=== PATIENT | male | born 1940 | race Caucasian/White ===

== ENCOUNTER → 2019-01-25 11:04 | Outpatient (CLI) | payer MEDICARE, SELFPAY ==
--- NOTE | 2019-01-25 | DI.RAD.S_ITS ---
PROCEDURE: XR CHEST 2V INDICATIONS: Shortness of breath TECHNIQUE: 2 views of the chest were acquired. COMPARISON: None. FINDINGS: Surgical changes and devices: None. Lungs and pleura: No consolidation. Increased interstitial markings. Lung volumes are prominent. No pleural effusions or pneumothorax. Mediastinum: Fullness in the right hilar region. Heart size is enlarged. Bones and chest wall: No suspicious bony abnormalities. Soft tissues appear unremarkable. IMPRESSION: 1. Fullness in the right hilar region may be due to adenopathy. CT of the chest with contrast is recommended for further evaluation. 2. Emphysematous change. 3. Cardiomegaly. Coronary stents. Dictated by: Thomas Lopez M.D. on 01/25/2019 at 12:13 Approved by: Thomas Lopez M.D. on 01/25/2019 at 12:16
== END ==
PROVIDERS: PCP Internal Medicine; Visit Provider Student in an Organized Health Care Education/Training Program
DX: R06.02 Shortness of breath (principal); I51.7 Cardiomegaly; I25.10 Atherosclerotic heart disease of native coronary artery without angina pectoris
CPT/HCPCS: 71046

== ENCOUNTER → 2019-01-30 09:32 | Outpatient (CLI) | payer MEDICARE, SELFPAY ==
[2019-01-30 10:00] LABS: Add Manual Diff / Slide Review NO; Basophils Absolute Auto 100 /uL (0-100); Basophils Percent Auto 1.1 % (0-2); Eosinophils Absolute Auto 300 /uL (0-450); Eosinophils Percent Auto 4.1 % (2-4); Hematocrit 46.3 % (41-53); Hemoglobin 15.6 g/dL (13.5-17.5); Lymphocytes Absolute Auto 1300 /uL (1100-4500); Lymphocytes Percent Auto 19.3 % (25-40); Mean Corpuscular HGB Conc 33.8 % (30-36); Mean Corpuscular Volume 100.5 fL (80-100); Monocytes Absolute Auto 700 /uL (0-900); Monocytes Percent Auto 10.1 % (3-14); Neutrophils Absolute Auto 4300 /uL (1500-7000); Neutrophils Percent Auto 65.4 % (50-75); Platelet Count 160 X10^3/uL (150-400); Red Blood Cell Count 4.61 X10^6/uL (4.5-5.9); Red Cell Distribution Width 15.7 % (11.6-14.8); White Blood Cell Count 6.6 X10^3/uL (4.5-11.0)
[2019-01-30 10:12] LABS: Alanine Aminotransferase 22 IU/L (21-72); Albumin 4.1 g/dL (3.5-5.0); Albumin Globulin Ratio 1.6 (1.0-2.8); Alkaline Phosphatase 113 U/L (38-126); Aspartate Aminotransferase 31 IU/L (17-59); BUN Creatinine Ratio 28.9 (6-22); Bilirubin Total 3.7 mg/dL (0.2-1.3); Blood Urea Nitrogen 26 mg/dL (9-20); Calcium 9.2 mg/dL (8.4-10.2); Carbon Dioxide 27 mmol/L (22-32); Chloride 101 mmol/L (98-107); Estimated Glomerular Filt Rate > 60.0 mL/min (>60); Globulin 2.6 g/dL (1.7-4.1); Glucose 147 mg/dL (80-110); HEMOLYSIS 16 (0-50); Potassium 5.1 mmol/L (3.4-5.1); Sodium 138 mmol/L (137-145); Total Protein 6.7 g/dL (6.3-8.2)
[2019-01-30 10:15] LABS: B Type Natriuretic Peptide 1620 (<100)
--- NOTE | 2019-01-30 10:19 | DI.CT.S_ITS ---
PROCEDURE: CT CHEST W CON INDICATIONS: Abnormal findings on diagnostic imaging TECHNIQUE: After the administration of intravenous contrast, 5 mm thick sections acquired from the pulmonary apices to the posterior costophrenic angles. 1 mm axial lung, 5 mm thick coronal and sagittal reformats and 7 mm axial MIP were acquired. For radiation dose reduction, the following was used: automated exposure control, adjustment of mA and/or kV according to patient size. COMPARISON: [facility], CR, XR CHEST 2V, 01/25/2019, 11:11. FINDINGS: Image quality: Excellent. Lungs and pleura: No acute air space opacities. No pleural effusions or pneumothorax. Central and peripheral airways are patent and normal in caliber. Mediastinum: Heart size is globally enlarged to a mild degree. No pericardial effusion. No mediastinal or hilar adenopathy by size criteria. Thoracic aorta and central pulmonary arteries are normal in size. Esophagus is normal in caliber. No hiatal hernia. Bones and chest wall: No suspicious bony lesions. No vertebral body compression fractures. No axillary or supraclavicular adenopathy by size criteria. Thyroid gland appears normal where well seen. Abdomen: Visualized upper abdominal solid organs appear normal. Upper abdominal bowel loops are normal in caliber. IMPRESSION: Mild cardiomegaly, no pulmonary mass lesion or adenopathy is found. 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 No aneurysm is found. Dictated by: Arsalan Lai M.D. on 01/30/2019 at 13:12 Approved by: Arsalan Lai M.D. on 01/30/2019 at 13:14
== END ==
PROVIDERS: Family Provider Internal Medicine; PCP Internal Medicine; Visit Provider Student in an Organized Health Care Education/Training Program
DX: R93.89 Abnormal findings on diagnostic imaging of other specified body structures (principal); I51.7 Cardiomegaly; R91.8 Other nonspecific abnormal finding of lung field; I50.9 Heart failure, unspecified
CPT/HCPCS: 36415; 71260; 80053; 83880; 85025; Q9967

== ENCOUNTER → 2019-02-08 10:23 | Outpatient (CLI) | payer MEDICARE, SELFPAY ==
[2019-02-08 11:28] LABS: Alanine Aminotransferase 23 IU/L (21-72); Albumin 4.1 g/dL (3.5-5.0); Albumin Globulin Ratio 1.5 (1.0-2.8); Alkaline Phosphatase 102 U/L (38-126); Aspartate Aminotransferase 36 IU/L (17-59); Bilirubin Total 3.7 mg/dL (0.2-1.3); Blood Urea Nitrogen 29 mg/dL (9-20); Calcium 9.3 mg/dL (8.4-10.2); Carbon Dioxide 31 mmol/L (22-32); Chloride 95 mmol/L (98-107); Cholesterol 115 mg/dL (140-199); Estimated Glomerular Filt Rate > 60.0 mL/min (>60); Globulin 2.8 g/dL (1.7-4.1); Glucose 118 mg/dL (80-110); HDL Cholesterol 27 mg/dL (40-60); HEMOLYSIS 22 (0-50); LDL Cholesterol Calculated 76 mg/dL (<100); Sodium 136 mmol/L (137-145); Total Protein 6.9 g/dL (6.3-8.2); Triglycerides 58 mg/dL (35-150)
== END ==
PROVIDERS: PCP Internal Medicine; Visit Provider Internal Medicine Cardiovascular Disease
DX: I50.22 Chronic systolic (congestive) heart failure (principal); I25.5 Ischemic cardiomyopathy; I48.20 Chronic atrial fibrillation, unspecified; E78.5 Hyperlipidemia, unspecified
CPT/HCPCS: 36415; 80053; 80061

== ENCOUNTER 2019-04-26 11:30 | Outpatient (RCR) | payer MEDICARE, SELFPAY | END 2019-05-07 10:49 | LOC: CAR 11:30 | PROVIDERS: PCP Internal Medicine; Visit Provider Internal Medicine | DX: I50.22 Chronic systolic (congestive) heart failure (principal) | CPT/HCPCS: 93798 ==

== ENCOUNTER → 2019-05-22 13:08 | Outpatient (CLI) | payer MEDICARE, SELFPAY ==
--- NOTE | 2019-05-22 | DI.RAD.S_ITS ---
PROCEDURE: XR LUMBAR SPINE 2-3V INDICATIONS: Back pain TECHNIQUE: Single view of the lumbar spine were acquired. COMPARISON: None. FINDINGS: Bones: 5 [id number] vertebrae are present. There is normal bony alignment. No vertebral body compression fractures. No suspicious bony lesions. 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 There is bridging osteophytes between L23 and L3-4, and these are greater on the left than the right. Superior and inferior endplate impaction is are present at L12, superior aspect of L3, and at both the superior and inferior endplates of L5. These appear likely chronic. Soft tissues: Overlying bowel gas pattern is normal. There is a prominent calcification in the region of the lower third of the right kidney measuring up to 1.5 cm.. IMPRESSION: Near severe degenerative changes are found over the LS spine most pronounced over the upper and middle thirds with both prominent bridging osteophytes, disc height reduction, and endplate impaction injuries that appear likely chronic. Note is made of a calcification overlying the right lower abdomen, possibly within the lower third collecting system of the right kidney, measuring up to 15 mm. Followup renal ultrasound may be warranted. Dictated by: Arsalan Lai M.D. on 05/22/2019 at 14:12 Approved by: Arsalan Lai M.D. on 05/22/2019 at 14:15
--- NOTE | 2019-05-22 | DI.RAD.S_ITS ---
PROCEDURE: XR CHEST 2V INDICATIONS: Heart failure TECHNIQUE: 2 views of the chest were acquired. COMPARISON: [facility], CR, XR CHEST 2V, 01/25/2019, 11:11. FINDINGS: Surgical changes and devices: None. Lungs and pleura: Lungs are mildly abnormal with an interstitial prominence consistent with perhaps prior smoking history. No pleural effusions or pneumothorax. Mediastinum: Mediastinal contours are normal. Heart size is globally enlarged, moderately, consistent with chronic CHF. Bones and chest wall: No suspicious bony abnormalities. Soft tissues appear unremarkable. IMPRESSION: Chronic CHF pattern, no acute disease. Dictated by: Arsalan aLi M.D. on 05/22/2019 at 14:11 Approved by: Arsalan Lai M.D. on 05/22/2019 at 14:12
== END ==
PROVIDERS: PCP Internal Medicine; Referring Provider Internal Medicine; Visit Provider Internal Medicine
DX: I50.9 Heart failure, unspecified (principal); M54.5 Low back pain; M47.816 Spondylosis without myelopathy or radiculopathy, lumbar region
CPT/HCPCS: 71046; 72100

== ENCOUNTER 2019-05-23 18:53 | Inpatient (IN) | payer MEDICARE, SELFPAY ==
[2019-05-23] VITALS (14 sets, daily range): BP systolic 68–81; BP diastolic 50–54; PULSE 68–72; RESP 12–23; TEMP 36.6; O2SAT 92–100
--- NOTE | 2019-05-23 19:02 | ED.GENADULT ---
HPI - General Adult General Chief complaint: Trauma Stated complaint: mental status change Time Seen by Provider: 05/23/19 18:53 Source: family and EMS Mode of arrival: EMS Limitations: altered mental status History of Present Illness HPI narrative: 78-year-old male who arrived by EMS for concerns of altered mental status. Report was that earlier today he EMS was called to the patient's house for altered mental status. Upon arrival they found him to be hypoglycemic with a blood sugar in the 40s. He was able to eat food which did improve his sugar. Patient then declined to be transported to the emergency department. His was reported to be with him at that time will also agreed that he should not be transported. EMS contacted the emergency department to let them know about the situation. Later on the afternoon EMS was again called to the house for altered mental status. He was then transported. Difficult to obtain history from the patient about the situation. His is at bedside provided little medical history. Patient stated that last night and this morning he ?just did not feel well?. Denies any other specific symptoms. It was then reported that the patient did fall earlier today. Unsure if he hit his head. He is on Eliquis. Modified trauma was called secondary to the situation. Patient reports no injuries with the fall. He states that he was out this morning running some errands and when he returned home he had a very difficult time walking. After multiple conversations with him in the room is also revealed that he has not urinated in potentially 72 hours. He also states that because he was not urinating he quit drinking fluids. He is unsure when the last time he had anything to drink. His then did say that she was giving him glasses of water to drink but he was not drinking then. He has never had any prostate issues in the past. This event he denies any headache or chest pain or shortness of breath. Some lower abdominal pain. Does have swelling in his lower extremities. Has a history of CHF. Is on Bumex for this. Related Data Home Medications Medication Instructions Recorded Confirmed bumetanide 1 mg PO BID 05/23/19 05/23/19 tramadol 50 - 100 mg PO Q6H PRN 05/23/19 05/23/19 Allergies Allergy/AdvReac Type Severity Reaction Status Date / Time No Known Drug Allergies Allergy Verified 05/23/19 21:15 Review of Systems Constitutional Constitutional: Reports fatigue, Denies fever(s), Denies frequent falls, Denies headache(s), Reports lethargy and Reports weakness ENT Ears, Nose, Mouth, and Throat: Denies dizziness, Denies headache(s) and Reports disequilibrium Cardiovascular Cardiovascular: Denies chest pain, Denies syncope, Reports edema, Reports leg edema, Denies palpitations and Denies dyspnea Respiratory Respiratory: Denies cough and Denies dyspnea Gastrointestinal Gastrointestinal: Reports abdominal pain, Denies nausea and Denies vomiting Genitourinary Genitourinary: Reports difficulty urinating and Denies testicular mass Musculoskeletal Musculoskeletal: Reports myalgias, Denies arthralgias and Denies tingling Integumentary/Breasts Skin/Breast: Denies lesions and Denies rash Neurologic Neurologic: Reports behavioral changes, Reports confusion, Denies dizziness, Denies syncope, Denies frequent falls, Denies headache(s), Denies focal weakness, Denies tingling, Reports disequilibrium and Reports weakness Psychiatric Psychiatric: Denies anxiety, Reports behavioral changes and Reports confusion Endocrine Endocrine: Reports fatigue and Denies palpitations Hematologic/Lymphatic Comments: On Eliquis Patient History Medical History Atrial fibrillation (Acute) Congestive heart failure (Acute) Coronary artery disease (Acute) Gout (Acute) History of stroke (Acute) Social History marital status: lives independently: Yes Exam Initial Vital Signs Initial Vital Signs: Vital Signs Pulse Rate 70 05/23/19 19:00 Respiratory Rate 18 05/23/19 19:00 Blood Pressure 70/50 L 05/23/19 19:00 Const General: cooperative, well developed and well groomed Limitations: mental status not altered [facility] Head: normal to inspection and normocephalic Eyes Pupils: PERRL EOM: EOM intact bilaterally Resp Effort & Inspection: normal respiratory effort Auscultation: clear to auscultation bilaterally Cardio Rate: regular rate Rhythm: regular rhythm Pulses: radial pulses present GI Inspection: non-distended Palpation: soft, No firm and No tender Skin Lesions: no lesions Rashes: no rashes Neuro General: alert, awake and oriented x3 Cognition: normal cognition Speech: other (Clear speech however slow to answer questions however he was appropriate) Sensory Exam: no sensory deficits noted Extrem General: edema Psych Appearance: grossly normal and well kempt Scores GCS [place] coma scale eye opening: Spontaneous Xiomy coma scale verbal response: Orientated [place] coma scale motor response: Obey commands [place] coma scale total score: 15 Course Orders Ordered: ED Orders 05/23/19 19:01 CT head/brain wo con Stat 05/23/19 19:08 Acetaminophen Stat Complete Blood Count AUTO DIFF Stat Comprehensive Metabolic Panel Stat Creatine Kinase Stat Ethanol (ETOH) Stat Ketones (Beta-Hydroxybutyrate) Stat Lipase Stat NT-proBNP (BNP-Adult 18+) Stat Partial Thromboplastin Time Stat Procalcitonin Stat Prolactin Stat Prothrombin Time INR Stat Salicylate Stat Troponin I Stat 05/23/19 19:38 Ammonia (NH3) Stat 05/23/19 20:32 UA Complete [Urinalysis and Microscopic] Stat Urine Drug Screen, Rapid Stat 05/23/19 21:07 XR chest 1V Stat 05/23/19 22:25 Troponin I Stat 05/23/19 23:24 CT kidney ureter bladder (KUB) Stat Sodium Chloride (Normal Saline 0.9%) 2,511 mls @ 837 mls/hr 30 ml/kg infuse over 3 hr (2511 ml) IV NOW ONE Stop: 05/24/19 00:39 Last Infusion: 05/23/19 22:32 Dose: 0 mls/hr Documented by: Infusion: 05/23/19 22:28 Dose: 0 mls/hr Documented by: Admin: 05/23/19 21:47 Dose: 837 mls/hr Documented by: NIK Sodium Chloride (Normal Saline 0.9%) 1,000 mls @ 125 mls/hr IV CONT KAY Last Admin: 05/23/19 22:36 Dose: 125 mls/hr Documented by: NIK Discontinued Medications Sodium Chloride (Normal Saline 0.9%) 1,000 mls @ 1,000 mls/hr IV BOLUS ONE Stop: 05/23/19 21:50 Last Infusion: 05/23/19 20:35 Dose: 0 mls/hr Documented by: Admin: 05/23/19 19:25 Dose: 1,000 mls/hr Documented by: NIK Sodium Chloride (Normal Saline 0.9%) 1,000 mls @ 1,000 mls/hr IV BOLUS ONE Stop: 05/23/19 21:55 Last Infusion: 05/23/19 22:06 Dose: 0 mls/hr Documented by: Admin: 05/23/19 20:45 Dose: 1,000 mls/hr Documented by: NIK Tramadol HCl (Ultram) 50 mg PO NOW ONE Stop: 05/23/19 23:27 Last Admin: 05/23/19 23:30 Dose: 50 mg Documented by: JONY Vital Signs Vital signs: Vital Signs - 8 hr 05/23/19 19:00 05/23/19 19:05 05/23/19 19:10 Temperature Pulse Rate 70 72 68 Respiratory Rate 18 12 18 Blood Pressure [Left Arm] 70/50 L 68/50 L 72/53 L Pulse Oximetry 05/23/19 19:15 05/23/19 19:31 05/23/19 19:35 Temperature Pulse Rate 69 68 68 Respiratory Rate 18 16 Blood Pressure [Left Arm] 72/51 L 77/54 L 77/54 L Pulse Oximetry 92 05/23/19 19:46 05/23/19 19:47 05/23/19 20:09 Temperature Pulse Rate 70 69 70 Respiratory Rate 19 19 Blood Pressure [Left Arm] 81/53 L 76/51 L 75/50 L Pulse Oximetry 92 05/23/19 21:00 05/23/19 21:11 05/23/19 22:01 Temperature 97.8 F Pulse Rate 70 72 Respiratory Rate 23 Blood Pressure [Left Arm] 75/50 L 79/51 L Pulse Oximetry 97 98 05/23/19 22:57 05/23/19 23:48 Temperature Pulse Rate 71 72 Respiratory Rate 13 Blood Pressure [Left Arm] 75/51 L 72/51 L Pulse Oximetry 99 100 Medical Decision Making Lab Data Lab results reviewed: Yes I reviewed the patient's lab results. Result diagrams: 05/23/19 19:08 05/23/19 19:08 Labs: Lab Results 05/23/19 05/23/19 05/23/19 Range/Units 19:08 19:08 19:08 WBC 11.8 H (4.5-11.0) X10^3/uL RBC 4.38 L (4.5-5.9) X10^6/uL Hgb 14.9 (13.5-17.5) g/dL Hct 45.2 (41-53) % MCV 103.2 H (80-100) fL MCH 34.2 H (26-34) PG MCHC 33.1 (30-36) % RDW 14.8 (11.6-14.8) % Plt Count 132 L (150-400) X10^3/uL Neut % (Auto) 82.1 H (50-75) % Lymph % (Auto) 5.5 L (25-40) % Graham % (Auto) 11.5 (3-14) % Eos % (Auto) 0.7 L (2-4) % Baso % (Auto) 0.2 (0-2) % Neut # (Auto) 9700 H (4517-6540) /uL Lymph # (Auto) 600 L (0215-0425) /uL Graham # (Auto) 1400 H (0-900) /uL Eos # (Auto) 100 (0-450) /uL Baso # (Auto) 0 (0-100) /uL PT 23.7 H (10.1-12.7) SECONDS INR 2.1 H (0.9-1.3) APTT 41 H (26.4-36.2) SECONDS Sodium 127 L (137-145) mmol/L Potassium 5.4 H (3.4-5.1) mmol/L Chloride 91 L (98-107) mmol/L Carbon Dioxide 19 L (22-32) mmol/L BUN 65 H (9-20) mg/dL Creatinine 4.20 H (0.66-1.25) mg/dL Estimated GFR 13.8 L (>60) mL/min BUN/Creatinine Ratio 15.5 (6-22) Glucose 91 (80-110) mg/dL Calcium 7.6 L (8.4-10.2) mg/dL Total Bilirubin 4.7 H (0.2-1.3) mg/dL AST 38 (17-59) IU/L ALT 16 (<50) IU/L Alkaline Phosphatase 64 (38-126) U/L Ammonia (9-30) umol/L Total Creatine Kinase (55-170) U/L Troponin I (0.01-0.034) ng/mL NT-Pro-B Natriuret Pep (<450) pg/mL Total Protein 6.0 L (6.3-8.2) g/dL Albumin 3.3 L (3.5-5.0) g/dL Globulin 2.7 (1.7-4.1) g/dL Albumin/Globulin Ratio 1.2 (1.0-2.8) Lipase 46 (23-300) U/L Procalcitonin (<0.5) ng/mL Prolactin (3.7-17.9) ng/mL Urine Color Urine Appearance Urine pH (4.5-8.0) Ur Specific [place] (1.000-1.035) Urine Protein (Negative) Urine Glucose (UA) (Negative) g/dL Urine Ketones (NEGATIVE) Urine Occult Blood (Negative) Urine Nitrate (Negative) Urine Bilirubin (NEGATIVE) Urine Urobilinogen (0.2) E.U./dL Ur Leukocyte Esterase (NEGATIVE) Urine RBC (0-5/HPF) Urine WBC (0-5/HPF) Ur Squamous Epith Cells (0-5/HPF) Urine Bacteria (None) Ur Culture Indicated? Salicylates (<20) mg/dL U Opiates 300ng/mL cut (Negative) Ur Oxycodone Screen (Negative) Urine Methadone Screen (Negative) Acetaminophen < 10 L (10-30) ug/mL Ur Barbiturates Screen (Negative) U Tricyclic Antidepress (Negative) Ur Phencyclidine Scrn (Negative) Ur Amphetamines Screen (Negative) U Methamphetamines Scrn (Negative) Ur MDMA Scrn (Ecstasy) (Negative) U Benzodiazepines Scrn (Negative) Urine Cocaine Screen (Negative) U Marijuana (THC) Screen (Negative) Ethyl Alcohol < 10 ( - 10) mg/dL Ketones 0.50 H (<0.27) mmol/L 05/23/19 05/23/19 05/23/19 Range/Units 19:08 19:08 19:08 WBC (4.5-11.0) X10^3/uL RBC (4.5-5.9) X10^6/uL Hgb (13.5-17.5) g/dL Hct (41-53) % MCV (80-100) fL MCH (26-34) PG MCHC (30-36) % RDW (11.6-14.8) % Plt Count (150-400) X10^3/uL Neut % (Auto) (50-75) % Lymph % (Auto) (25-40) % Graham % (Auto) (3-14) % Eos % (Auto) (2-4) % Baso % (Auto) (0-2) % Neut # (Auto) (3548-1776) /uL Lymph # (Auto) (4496-5485) /uL Graham # (Auto) (0-900) /uL Eos # (Auto) (0-450) /uL Baso # (Auto) (0-100) /uL PT (10.1-12.7) SECONDS INR (0.9-1.3) APTT (26.4-36.2) SECONDS Sodium (137-145) mmol/L Potassium (3.4-5.1) mmol/L Chloride (98-107) mmol/L Carbon Dioxide (22-32) mmol/L BUN (9-20) mg/dL Creatinine (0.66-1.25) mg/dL Estimated GFR (>60) mL/min BUN/Creatinine Ratio (6-22) Glucose (80-110) mg/dL Calcium (8.4-10.2) mg/dL Total Bilirubin (0.2-1.3) mg/dL AST (17-59) IU/L ALT (<50) IU/L Alkaline Phosphatase (38-126) U/L Ammonia (9-30) umol/L Total Creatine Kinase 145 (55-170) U/L Troponin I 0.014 (0.01-0.034) ng/mL NT-Pro-B Natriuret Pep (<450) pg/mL Total Protein (6.3-8.2) g/dL Albumin (3.5-5.0) g/dL Globulin (1.7-4.1) g/dL Albumin/Globulin Ratio (1.0-2.8) Lipase (23-300) U/L Procalcitonin 0.91 H (<0.5) ng/mL Prolactin 26.9 H (3.7-17.9) ng/mL Urine Color Urine Appearance Urine pH (4.5-8.0) Ur Specific [place] (1.000-1.035) Urine Protein (Negative) Urine Glucose (UA) (Negative) g/dL Urine Ketones (NEGATIVE) Urine Occult Blood (Negative) Urine Nitrate (Negative) Urine Bilirubin (NEGATIVE) Urine Urobilinogen (0.2) E.U./dL Ur Leukocyte Esterase (NEGATIVE) Urine RBC (0-5/HPF) Urine WBC (0-5/HPF) Ur Squamous Epith Cells (0-5/HPF) Urine Bacteria (None) Ur Culture Indicated? Salicylates < 1.0 (<20) mg/dL U Opiates 300ng/mL cut (Negative) Ur Oxycodone Screen (Negative) Urine Methadone Screen (Negative) Acetaminophen (10-30) ug/mL Ur Barbiturates Screen (Negative) U Tricyclic Antidepress (Negative) Ur Phencyclidine Scrn (Negative) Ur Amphetamines Screen (Negative) U Methamphetamines Scrn (Negative) Ur MDMA Scrn (Ecstasy) (Negative) U Benzodiazepines Scrn (Negative) Urine Cocaine Screen (Negative) U Marijuana (THC) Screen (Negative) Ethyl Alcohol ( - 10) mg/dL Ketones (<0.27) mmol/L 05/23/19 05/23/19 05/23/19 Range/Units 19:08 19:38 20:32 WBC (4.5-11.0) X10^3/uL RBC (4.5-5.9) X10^6/uL Hgb (13.5-17.5) g/dL Hct (41-53) % MCV (80-100) fL MCH (26-34) PG MCHC (30-36) % RDW (11.6-14.8) % Plt Count (150-400) X10^3/uL Neut % (Auto) (50-75) % Lymph % (Auto) (25-40) % Graham % (Auto) (3-14) % Eos % (Auto) (2-4) % Baso % (Auto) (0-2) % Neut # (Auto) (2012-8906) /uL Lymph # (Auto) (4162-1695) /uL Graham # (Auto) (0-900) /uL Eos # (Auto) (0-450) /uL Baso # (Auto) (0-100) /uL PT (10.1-12.7) SECONDS INR (0.9-1.3) APTT (26.4-36.2) SECONDS Sodium (137-145) mmol/L Potassium (3.4-5.1) mmol/L Chloride (98-107) mmol/L Carbon Dioxide (22-32) mmol/L BUN (9-20) mg/dL Creatinine (0.66-1.25) mg/dL Estimated GFR (>60) mL/min BUN/Creatinine Ratio (6-22) Glucose (80-110) mg/dL Calcium (8.4-10.2) mg/dL Total Bilirubin (0.2-1.3) mg/dL AST (17-59) IU/L ALT (<50) IU/L Alkaline Phosphatase (38-126) U/L Ammonia < 9 L (9-30) umol/L Total Creatine Kinase (55-170) U/L Troponin I (0.01-0.034) ng/mL NT-Pro-B Natriuret Pep 26798 H (<450) pg/mL Total Protein (6.3-8.2) g/dL Albumin (3.5-5.0) g/dL Globulin (1.7-4.1) g/dL Albumin/Globulin Ratio (1.0-2.8) Lipase (23-300) U/L Procalcitonin (<0.5) ng/mL Prolactin (3.7-17.9) ng/mL Urine Color Yellow Urine Appearance Clear Urine pH 5.0 (4.5-8.0) Ur Specific [place] 1.015 (1.000-1.035) Urine Protein Negative (Negative) Urine Glucose (UA) Negative (Negative) g/dL Urine Ketones Negative (NEGATIVE) Urine Occult Blood 3+ H (Negative) Urine Nitrate Negative (Negative) Urine Bilirubin Negative (NEGATIVE) Urine Urobilinogen 0.2 (0.2) E.U./dL Ur Leukocyte Esterase Negative (NEGATIVE) Urine RBC 30-100/hpf H (0-5/HPF) Urine WBC 0-1/hpf (0-5/HPF) Ur Squamous Epith Cells 0-1 /hpf (0-5/HPF) Urine Bacteria None seen (None) Ur Culture Indicated? Cult not indicated Salicylates (<20) mg/dL U Opiates 300ng/mL cut (Negative) Ur Oxycodone Screen (Negative) Urine Methadone Screen (Negative) Acetaminophen (10-30) ug/mL Ur Barbiturates Screen (Negative) U Tricyclic Antidepress (Negative) Ur Phencyclidine Scrn (Negative) Ur Amphetamines Screen (Negative) U Methamphetamines Scrn (Negative) Ur MDMA Scrn (Ecstasy) (Negative) U Benzodiazepines Scrn (Negative) Urine Cocaine Screen (Negative) U Marijuana (THC) Screen (Negative) Ethyl Alcohol ( - 10) mg/dL Ketones (<0.27) mmol/L 05/23/19 05/23/19 Range/Units 20:32 22:25 WBC (4.5-11.0) X10^3/uL RBC (4.5-5.9) X10^6/uL Hgb (13.5-17.5) g/dL Hct (41-53) % MCV (80-100) fL MCH (26-34) PG MCHC (30-36) % RDW (11.6-14.8) % Plt Count (150-400) X10^3/uL Neut % (Auto) (50-75) % Lymph % (Auto) (25-40) % Graham % (Auto) (3-14) % Eos % (Auto) (2-4) % Baso % (Auto) (0-2) % Neut # (Auto) (6161-1397) /uL Lymph # (Auto) (3222-3571) /uL Graham # (Auto) (0-900) /uL Eos # (Auto) (0-450) /uL Baso # (Auto) (0-100) /uL PT (10.1-12.7) SECONDS INR (0.9-1.3) APTT (26.4-36.2) SECONDS Sodium (137-145) mmol/L Potassium (3.4-5.1) mmol/L Chloride (98-107) mmol/L Carbon Dioxide (22-32) mmol/L BUN (9-20) mg/dL Creatinine (0.66-1.25) mg/dL Estimated GFR (>60) mL/min BUN/Creatinine Ratio (6-22) Glucose (80-110) mg/dL Calcium (8.4-10.2) mg/dL Total Bilirubin (0.2-1.3) mg/dL AST (17-59) IU/L ALT (<50) IU/L Alkaline Phosphatase (38-126) U/L Ammonia (9-30) umol/L Total Creatine Kinase (55-170) U/L Troponin I < 0.012 (0.01-0.034) ng/mL NT-Pro-B Natriuret Pep (<450) pg/mL Total Protein (6.3-8.2) g/dL Albumin (3.5-5.0) g/dL Globulin (1.7-4.1) g/dL Albumin/Globulin Ratio (1.0-2.8) Lipase (23-300) U/L Procalcitonin (<0.5) ng/mL Prolactin (3.7-17.9) ng/mL Urine Color Urine Appearance Urine pH (4.5-8.0) Ur Specific [place] (1.000-1.035) Urine Protein (Negative) Urine Glucose (UA) (Negative) g/dL Urine Ketones (NEGATIVE) Urine Occult Blood (Negative) Urine Nitrate (Negative) Urine Bilirubin (NEGATIVE) Urine Urobilinogen (0.2) E.U./dL Ur Leukocyte Esterase (NEGATIVE) Urine RBC (0-5/HPF) Urine WBC (0-5/HPF) Ur Squamous Epith Cells (0-5/HPF) Urine Bacteria (None) Ur Culture Indicated? Salicylates (<20) mg/dL U Opiates 300ng/mL cut Negative (Negative) Ur Oxycodone Screen Negative (Negative) Urine Methadone Screen Negative (Negative) Acetaminophen (10-30) ug/mL Ur Barbiturates Screen Negative (Negative) U Tricyclic Antidepress Negative (Negative) Ur Phencyclidine Scrn Negative (Negative) Ur Amphetamines Screen Negative (Negative) U Methamphetamines Scrn Negative (Negative) Ur MDMA Scrn (Ecstasy) Negative (Negative) U Benzodiazepines Scrn Negative (Negative) Urine Cocaine Screen Negative (Negative) U Marijuana (THC) Screen Negative (Negative) Ethyl Alcohol ( - 10) mg/dL Ketones (<0.27) mmol/L Point of Care Testing Glucose POC 91 Point of care testing: Point of Care Testing Glucose POC [address] scan - head: Radiologist's Impression: [address] [id number] [address] Scan Report Signed Patient: Ishaan Nolen EMR#: [id number] : 2Acct:[id number] Age/Sex: 78 / MDate of Service: 05/23/19 Loc: ED Accession Number: [id number] Procedure: CT head/brain wo con Ordering Provider: Ashwin Ramirez D.O. PROCEDURE: CT HEAD/BRAIN WO CON INDICATIONS: Fall on Eliquis TECHNIQUE: Noncontrast 4.5 mm thick angled axial sections acquired from the foramen magnum to the vertex, with coronal and sagittal reformats. For radiation dose reduction, the following was used: automated exposure control, adjustment of mA and/or kV according to patient size. COMPARISON: None. FINDINGS: Image quality: Excellent. CSF spaces: Basal cisterns are patent. No extra-axial fluid collections. The ventricles are symmetric in size and shape. Brain: No intracranial bleeds or masses. There is cerebral volume loss for age, with resultant ventricular and sulcal prominence. There are periventricular and deep white matter chronic small vessel ischemic changes. There is intracranial internal carotid artery atherosclerosis. Skull and face: Calvarium and visualized facial bones appear intact, without suspicious lesions. Sinuses: Visualized sinuses and mastoids are clear. IMPRESSION: Mild microvascular atherosclerotic change in the deep white matter and is here, expected for age. No trauma found, no intracranial hemorrhage present. Dictated by: Arsalan Lai M.D. on 05/23/2019 at 20:00 Approved by: Arsalan Lai M.D. on 05/23/2019 at 20:01 Chest x-ray: Radiologist's Impression: [address] [address] XRay Report Signed Patient: Ishaan Nolen EMR#: [id number] : 2Acct:[id number] Age/Sex: 78 / MDate of Service: 05/23/19 Loc: ED Accession Number: [id number] Procedure: XR chest 1V Ordering Provider: Ashwin Ramirez D.O. PROCEDURE: XR CHEST 1V INDICATIONS: Cough eval for pneumonia TECHNIQUE: One view of the chest was acquired. COMPARISON: [facility], CR, XR CHEST 2V, 05/22/2019, 13:39. [facility], , XR CHEST 2V, 01/25/2019, 11:11. FINDINGS: Surgical changes and devices: None. Lungs and pleura: Lungs are mildly abnormal with a slight degree of interstitial prominence. No pleural effusions or pneumothorax. Mediastinum: Mediastinal contours appear normal. Heart size is abnormal, mildly enlarged, chronically.. Bones and chest wall: No suspicious bony lesions. Overlying soft tissues appear unremarkable. IMPRESSION: Mild cardiomegaly, chronic, suspect mild acute exacerbation of CHF as a potential etiology of cough. No pneumonia found. Dictated by: Arsalan Lai M.D. on 05/23/2019 at 21:40 Approved by: Arsalan Lai M.D. on 05/23/2019 at 21:40 CT scan - abdomen/pelvis: Radiologist's Impression: Moderate prostate enlargement. Araujo catheter bladder. No hydronephrosis currently Cirrhosis suspected. Small amount of ascites. Cholelithiasis. Associated gallbladder wall findings which may reflect chronic liver disease or cholecystitis. Consider right upper quadrant ultrasound. Cardiomegaly we and right more than left pleural effusions Multilevel spinal stenosis ECG Data Attestation: I personally reviewed and interpreted this ECG as follows: Prior ECG tracings: not available for review Interpretation: Atrial fibrillation Ventricular rate is 69 Right axis deviation QRS 04/22/2017 milliseconds Normal QTC No ST T wave changes MDM Narrative Medical decision making narrative: Modified trauma was called secondary to the report of the patient falling him being on Eliquis. His head CT was unremarkable. Patient was alert and oriented x3 upon arrival. GCS of 15 however admittedly was somewhat slow to answer questions. According to his at bedside this is new for him. He had no specific symptoms. Was not until he was asked about abdominal pain when he revealed that it has been potentially several days since he urinated. Bladder scan showed around a L was placed. Greater than 1 L returned. Urinalysis not consistent with urinary tract infection. Patient does have an acute kidney injury. I do suspect this is from 2 reasons 1st being the outlet obstruction and also pre renal given the fact that he admitted that he has not been drinking for at least the past day because he had not been urinating. His BNP is elevated. This could be secondary to his kidney function and also secondary to his known CHF. I do feel that he is intravascularly dehydrated which was demonstrated by his hypotension. His systolic blood pressures were in the 70s however his mean arterial pressures were in the 60-65 range. I did not feel the need to start him on blood pressure medications here in the ER. I do suspect that he is dehydrated. He is given 30 cc/kilos fluids and started on maintenance fluids. He did report feeling much better after his fluid boluses. Troponins were negative x2. Has other electrolyte issues which I suspect are secondary to his kidney injuries. I did discuss the case with KARY Caballero the nurse practitioner covering the hospitalist service at night who asked for the CT scan of the abdomen. He was not given contrast given his kidney function. Showed no acute pathology. He does not have right upper quadrant pain concerning for gallbladder pathology. This could be potentially worked up further as an inpatient. Do not feel the patient needs emergent dialysis. Potassium was unremarkable. Again I do suspect that this was a outlet obstruction and a pre renal issue. I did discuss the situation with the patient and his and his son who are bedside. We did discuss the need for admission to the hospital. Will admit for further evaluation treatment. Discharge Plan Departure Patient Disposition: Admitted As Inpatient Clinical Impression: Acute hypotension, Dehydration, Hyperbilirubinemia Acute renal failure Qualifiers: Acute renal failure type: unspecified Qualified Code(s): N17.9 - Acute kidney failure, unspecified CHF (congestive heart failure) Qualifiers: Heart failure type: unspecified Heart failure chronicity: unspecified Qualified Code(s): I50.9 - Heart failure, unspecified Admit Date/Time: 05/24/19 00:23 Admit Provider: Jacqui Caballero
[2019-05-23 19:23] LABS: Add Manual Diff / Slide Review NO; Basophils Absolute Auto 0 /uL (0-100); Basophils Percent Auto 0.2 % (0-2); Eosinophils Absolute Auto 100 /uL (0-450); Eosinophils Percent Auto 0.7 % (2-4); Hematocrit 45.2 % (41-53); Hemoglobin 14.9 g/dL (13.5-17.5); Lymphocytes Absolute Auto 600 /uL (1100-4500); Lymphocytes Percent Auto 5.5 % (25-40); Mean Corpuscular HGB Conc 33.1 % (30-36); Mean Corpuscular Hemoglobin 34.2 PG (26-34); Mean Corpuscular Volume 103.2 fL (80-100); Monocytes Absolute Auto 1400 /uL (0-900); Monocytes Percent Auto 11.5 % (3-14); Neutrophils Absolute Auto 9700 /uL (1500-7000); Neutrophils Percent Auto 82.1 % (50-75); Platelet Count 132 X10^3/uL (150-400); Red Blood Cell Count 4.38 X10^6/uL (4.5-5.9); Red Cell Distribution Width 14.8 % (11.6-14.8); White Blood Cell Count 11.8 X10^3/uL (4.5-11.0)
[2019-05-23] MEDS: SODIUM CHLORIDE 0.9% 1,000 ML 1000 ML IV ×2 (19:25→20:45)
[2019-05-23 19:31] LABS: INR 2.1 (0.9-1.3); Prothrombin Time 23.7 SECONDS (10.1-12.7)
[2019-05-23 19:33] LABS: PTT Partial Thromboplastin Tim 41 SECONDS (26.4-36.2)
[2019-05-23 19:41] LABS: Acetaminophen < 10 ug/mL (10-30); Alanine Aminotransferase 16 IU/L (<50); Albumin 3.3 g/dL (3.5-5.0); Albumin Globulin Ratio 1.2 (1.0-2.8); Alkaline Phosphatase 64 U/L (38-126); Aspartate Aminotransferase 38 IU/L (17-59); BUN Creatinine Ratio 15.5 (6-22); Bilirubin Total 4.7 mg/dL (0.2-1.3); Blood Urea Nitrogen 65 mg/dL (9-20); Calcium 7.6 mg/dL (8.4-10.2); Carbon Dioxide 19 mmol/L (22-32); Chloride 91 mmol/L (98-107); Estimated Glomerular Filt Rate 13.8 mL/min (>60); Ethanol (ETOH) < 10 mg/dL; Globulin 2.7 g/dL (1.7-4.1); Glucose 91 mg/dL (80-110); Lipase 46 U/L (23-300); Salicylate < 1.0 mg/dL (<20); Sodium 127 mmol/L (137-145)
[2019-05-23 19:43] LABS: HEMOLYSIS 53 (0-50); Potassium 5.4 mmol/L (3.4-5.1)
[2019-05-23 19:52] LABS: Troponin I 0.014 ng/mL (0.01-0.034)
[2019-05-23 19:53] LABS: Procalcitonin 0.91 ng/mL (<0.5)
[2019-05-23 19:57] LABS: Ammonia (NH3) < 9 umol/L (9-30)
[2019-05-23 19:57] LABS: Prolactin 26.9 ng/mL (3.7-17.9)
[2019-05-23 21:00] LABS: Bacteria Urine None Seen
[2019-05-23 21:02] LABS: Appearance Urine UA CLEAR; Bilirubin Urine UA NEGATIVE (NEGATIVE); Color Urine UA YELLOW; Glucose Urine UA NEGATIVE (Negative); Ketones Urine UA NEGATIVE (NEGATIVE); Leukocyte Esterase Urine UA NEGATIVE (NEGATIVE); Nitrite Urine UA NEGATIVE (Negative); Occult Blood Urine UA 3+ (Negative); Protein Urine UA NEGATIVE (Negative); Specific Gravity Urine UA 1.015 (1.000-1.035); Urobilinogen Urine UA 0.2 E.U./dL (0.2)
[2019-05-23 21:07] LABS: UR Morphine/Opiate cutoff 300 Negative (Negative); Ur Creatinine Normal (Normal); Ur Specific Gravity Normal (Normal); Urine Amphetamines Negative (Negative); Urine Barbiturates Negative (Negative); Urine Benzodiazepines Negative (Negative); Urine Cocaine Negative (Negative); Urine MDMA Negative (Negative); Urine Methadone Negative (Negative); Urine Methamphetamines Negative (Negative); Urine Oxycodone Negative (Negative); Urine Phencyclidine Negative (Negative); Urine Tetrahydrocannabinol Negative (Negative); Urine Tricyclic Antidepressant Negative (Negative); Urine pH Normal (Normal)
--- NOTE | 2019-05-23 21:07 | DI.RAD.S_ITS ---
PROCEDURE: XR CHEST 1V INDICATIONS: Cough eval for pneumonia TECHNIQUE: One view of the chest was acquired. COMPARISON: [facility], CR, XR CHEST 2V, 05/22/2019, 13:39. [facility], CR, XR CHEST 2V, 01/25/2019, 11:11. FINDINGS: Surgical changes and devices: None. Lungs and pleura: Lungs are mildly abnormal with a slight degree of interstitial prominence. No pleural effusions or pneumothorax. Mediastinum: Mediastinal contours appear normal. Heart size is abnormal, mildly enlarged, chronically.. Bones and chest wall: No suspicious bony lesions. Overlying soft tissues appear unremarkable. IMPRESSION: Mild cardiomegaly, chronic, suspect mild acute exacerbation of CHF as a potential etiology of cough. No pneumonia found. Dictated by: Arsalan Lai M.D. on 05/23/2019 at 21:40 Approved by: Arsalan Lai M.D. on 05/23/2019 at 21:40
[2019-05-23 21:11] LABS: Culture Indicated Urine Cult Not Indicated; RBC Urine 30-100/HPF (0-5/HPF); Squamous Epithelial Cell Urine 0-1 /HPF (0-5/HPF); WBC Urine 0-1/HPF (0-5/HPF)
--- NOTE | 2019-05-23 21:17 | PC.NURSE ---
Family is unaware of medications, last doses, pharmacy or medical problems.
--- NOTE | 2019-05-23 21:36 | PC.NURSE ---
Changed pt bed to obtain weight. catheter still draining. Urine now very dark in color. Notified Dr. Ramirez. New lab work ordered at this time. Updated pt and family on waiting for new labs.
[2019-05-23 21:43] LABS: Creatine Kinase 145 U/L (55-170)
[2019-05-23] MEDS: SODIUM CHLORIDE 0.9% 837 ML IV (21:47)
[2019-05-23 21:58] LABS: NT-proBNP (BNP-Adult 18+) 14300 pg/mL (<450)
--- NOTE | 2019-05-23 22:29 | PC.NURSE ---
Per Verbal order of Dr. Ramirez pt has received a total of 2511 mL normal saline. Verbal order to now maintain fluids at 125 per hour.
[2019-05-23] MEDS: SODIUM CHLORIDE 0.9% 1,000 ML 125 ML IV (22:36)
--- NOTE | 2019-05-23 22:52 | PC.NURSE ---
Pt family reports pt is not responding appropriately. I entered room and pt not responding to me at all with words. BP 65/[address] evaluated pt and pt appears to be responding as he has during entire visit. Pt reports that he feels extra tired and wants to rest. Notified family to notify me if any changes. Pt allowed to rest. repeat bp 75/51
[2019-05-23 23:01] LABS: Troponin I < 0.012 ng/mL (0.01-0.034)
--- NOTE | 2019-05-23 23:24 | DI.CT.S_ITS ---
PROCEDURE: CT KIDNEY URETER BLADDER (KUB) INDICATIONS: urinary retention TECHNIQUE: Noncontrast 5 mm thick sections acquired from the diaphragms to the symphysis. 5 mm thick coronal and sagittal reformats were then performed. For radiation dose reduction, the following was used: automated exposure control, adjustment of mA and/or kV according to patient size. COMPARISON: [facility], CR, XR LUMBAR SPINE 2-3V, 05/22/2019, 13:39. [facility], CR, XR CHEST 1V, 05/24/2019, 5:07. FINDINGS: Image quality: Excellent. Lung bases: There is a small right-sided pleural effusion and a trace left-sided pleural effusion. [id number] cardiomegaly is seen. Coronary artery calcifications are seen. Urinary system: Both kidneys are normal in size. No kidney stones. No hydronephrosis or perinephric fat stranding. Both ureters appear non-dilated throughout their expected courses. The bladder is decompressed by the presence of a Araujo catheter. The prostate is moderately enlarged. Other solid organs: Liver is normal in size. Low-density lesions are seen within the liver. The largest of these measures water density. The smaller ones cannot be defined as simple cysts. The liver demonstrates a mildly nodular contour. Gallbladder demonstrates numerous gallstones. Gallbladder wall thickening is seen. Pancreas is normal in contours. Spleen is normal in size. Calcified granulomas are seen within the spleen. Generalized thickening is seen of the adrenal glands, yet without focal adrenal nodules. Peritoneum and bowel: Unenhanced bowel loops demonstrate normal wall thickness and caliber. No free air. Mild ascites is seen. Nodes and vessels: No retroperitoneal or mesenteric adenopathy by size criteria. Aorta and inferior vena cava are normal in caliber. Atherosclerotic calcification is noted. Abdominal wall: No ventral hernias. Pelvis: No free pelvic fluid. No inguinal adenopathy. There is a small right-sided inguinal hernia seen, which contains fat and fluid. Bones: No suspicious bony lesions. No vertebral body compression fractures. Bony degenerative changes are seen, including prominent degenerative change of the lumbar spine and the right hip. There is mild retrolisthesis at L1-L2 and L3-L4, with moderate retrolisthesis at L2-L3. IMPRESSION: Moderate enlargement of the prostate. Mild ascites. Cirrhosis is suspected. There is a small right-sided pleural effusion and a trace left-sided pleural effusion. Low-density lesions are seen within the liver, which may represent cysts or hemangiomas. Gallstones are seen. There is mild thickening of the gallbladder wall. The thickening of the gallbladder wall may simply be secondary to the ascites. If clinically appropriate, a right upper quadrant ultrasound could be considered for further evaluation. Incidental note is made of: Cardiomegaly Coronary artery calcification Apparent liver cysts Prior granulomatous exposure. Bony degenerative changes, particularly affecting the lumbar spine and right hip. Note: No significant discrepancy from the preliminary report. Dictated by: Sean Li M.D. on 05/24/2019 at 8:21 Approved by: Sean Li M.D. on 05/24/2019 at 8:29
[2019-05-23] MEDS: TRAMADOL 50 MG TABLET PO (23:30)
--- NOTE | 2019-05-24 00:45 | P.HP_ITS ---
History of Present Illness History of Present Illness Date Patient Seen: 05/24/19 Time Patient Seen: 00:10 Chief complaint: mental status change Narrative: Ishaan Nolen is a 78-year-old male with a significant history including UT, stent placement, and a CVA after having undergone PCI procedure presented to the emergency department after having weakness and confusion earlier in the day. He apparently was seen by EMS who found that he had a blood sugar in the 40s. They gave him food, he seemed to perk up and declined transport to the emergency department. Patient apparently declined again and the family later in the afternoon called EMS requesting that he be brought to the emergency department. The ED reported that he has been hypotensive but with a map in the 60-65 range. He received about 2.5 L bolus and is currently running normal saline at 125 mL/hour. The patient's creatinine was 4.20 on admission with a normal baseline (1.0) in January of 2019. When asked about fluid intake patient states that he stopped urinating about 3 days ago and when he stopped urinating, he stopped drinking any fluids. When in the room the told me that he passed out in the garage and that he has been weak for 3 days. Patient states he had a rare bacterial infection in his spine (Lacacoccus carnae?) and recently completed a course of cardiac rehab therapy approximately 2-3 weeks ago. He states that he does not have an enlarged prostate, he has no history of kidney issues, is not diabetic. He denies shortness of breath, chest pain, abdominal pain, back pain, he does endorse right-sided thigh pain. He sees Dr. Ishaan Rios lead heart failure physician at [facility]. Patient has an extensive cardiac history which included his severe ischemic cardiomyopathy in 2017 with large LAD distribution infarction and mild ischemia in the RCA and the left CX distributions. At that time it involved 75% of the mid distal anterior wall, mid to distal lateral wall, anterior septum and the entire apex. At that time he had a severely enlarged left ventricle with a severely reduced left ventricular function of 22.9%. The right ventricle was of normal size with [id number] reduced right ventricular function of 41%. He has a current diagnosis of atrial fibrillation and this was also seen on that echocardiogram. Patient had an UT in 2006 and in stent restenosis in 2007. At that time his ejection fraction was 45% and during the 2nd PCI procedure he had a stroke. The notes state did that over this past several years he has declined in function and in 2011 his echocardiogram indicated a 33% EF with possible ischemia, the next echo in 2013 indicated an EF of 16%. And then in 2018 his most recent echo, was 30% EF. They recommended a biventricular ICD. The patient has declined such stating to me that he did want to be a ?robot?. Patient History Medical History (Updated 05/24/19 @ 01:15 by DANIELLE Davis) Atrial fibrillation (Acute) Congestive heart failure (Acute) Coronary artery disease (Acute) Coronary stent restenosis (Acute) Gout (Acute) History of stroke (Acute) Hx of myocardial infarction (Acute) Ischemic cardiomyopathy (Chronic) Surgical History (Updated 05/24/19 @ 01:15 by DANIELLE Davis) H/O heart artery stent (Acute) H/O: vasectomy (Acute) Hx of cataract surgery (Acute) Family & Social History Social History: Former smoker 15-20 PH, quit in 80s ETOH: Occasional lives independently Yes, with Meds Home Medications and Allergies Home Medications Medication Instructions Recorded Confirmed Type bumetanide 1 mg PO BID 05/23/19 05/23/19 History tramadol 50 - 100 mg PO Q6H PRN 05/23/19 05/23/19 History Allergies Allergy/AdvReac Type Severity Reaction Status Date / Time No Known Drug Allergies Allergy Verified 05/23/19 21:15 Review of Systems Review of Systems ROS: Yes All systems reviewed with the patient and are negative except as otherwise documented Exam Vital Signs (past 8 hours): - 05/23/19 19:00 05/23/19 19:05 05/23/19 19:10 Temperature Pulse Rate 70 72 68 Respiratory Rate 18 12 18 Blood Pressure [Left Arm] 70/50 L 68/50 L 72/53 L Pulse Oximetry 05/23/19 19:15 05/23/19 19:31 05/23/19 19:35 Temperature Pulse Rate 69 68 68 Respiratory Rate 18 16 Blood Pressure [Left Arm] 72/51 L 77/54 L 77/54 L Pulse Oximetry 92 05/23/19 19:46 05/23/19 19:47 05/23/19 20:09 Temperature Pulse Rate 70 69 70 Respiratory Rate 19 19 Blood Pressure [Left Arm] 81/53 L 76/51 L 75/50 L Pulse Oximetry 92 05/23/19 21:00 05/23/19 21:11 05/23/19 22:01 Temperature 97.8 F Pulse Rate 70 72 Respiratory Rate 23 Blood Pressure [Left Arm] 75/50 L 79/51 L Pulse Oximetry 97 98 05/23/19 22:57 05/23/19 23:48 Temperature Pulse Rate 71 72 Respiratory Rate 13 Blood Pressure [Left Arm] 75/51 L 72/51 L Pulse Oximetry 99 100 Oxygen Delivery Method Room Air Narrative Exam Narrative: Gen: Alert, oriented, ill appearing 78 y.o. male, appears sleepy HEENT: normocephalic, atraumatic, conjunctiva clear, sclera non-icteric, oral mucosa dry Neck: supple, full ROM Resp: Lungs CTA, non-labored breathing CV: RRR, no murmur or rubs : Araujo draining tea-colored urine Abd: soft, non-tender, normoactive BTs Skin: no lesions or rashes, dry and intact Neuro: Appears to have word finding difficulties, patient is aware of this. Alert and oriented X 4 w/no focal deficits Extremities: moves all 4 extremities, is ambulatory, negative Ulises?s sign Psyche: normal mood and affect Objective Labs Result Diagrams: 05/23/19 19:08 05/23/19 19:08 Labs: Laboratory Results - last 24 hr 05/23/19 05/23/19 05/23/19 19:08 19:08 19:08 WBC 11.8 H RBC 4.38 L Hgb 14.9 Hct 45.2 MCV 103.2 H MCH 34.2 H MCHC 33.1 RDW 14.8 Plt Count 132 L Neut % (Auto) 82.1 H Lymph % (Auto) 5.5 L [place] % (Auto) 11.5 Eos % (Auto) 0.7 L Baso % (Auto) 0.2 Neut # (Auto) 9700 H Lymph # (Auto) 600 L [place] # (Auto) 1400 H Eos # (Auto) 100 Baso # (Auto) 0 PT 23.7 H INR 2.1 H APTT 41 H Sodium 127 L Potassium 5.4 H Chloride 91 L Carbon Dioxide 19 L BUN 65 H Creatinine 4.20 H Estimated GFR 13.8 L BUN/Creatinine Ratio 15.5 Glucose 91 Calcium 7.6 L Total Bilirubin 4.7 H AST 38 ALT 16 Alkaline Phosphatase 64 Ammonia Total Creatine Kinase Troponin I NT-Pro-B Natriuret Pep Total Protein 6.0 L Albumin 3.3 L Globulin 2.7 Albumin/Globulin Ratio 1.2 Lipase 46 Procalcitonin Prolactin Urine Color Urine Appearance Urine pH Ur Specific [place] Urine Protein Urine Glucose (UA) Urine Ketones Urine Occult Blood Urine Nitrate Urine Bilirubin Urine Urobilinogen Ur Leukocyte Esterase Urine RBC Urine WBC Ur Squamous Epith Cells Urine Bacteria Ur Culture Indicated? Salicylates U Opiates 300ng/mL cut Ur Oxycodone Screen Urine Methadone Screen Acetaminophen < 10 L Ur Barbiturates Screen U Tricyclic Antidepress Ur Phencyclidine Scrn Ur Amphetamines Screen U Methamphetamines Scrn Ur MDMA Scrn (Ecstasy) U Benzodiazepines Scrn Urine Cocaine Screen U Marijuana (THC) Screen Ethyl Alcohol < 10 Ketones 0.50 H 05/23/19 05/23/19 05/23/19 19:08 19:08 19:08 WBC RBC Hgb Hct MCV MCH MCHC RDW Plt Count Neut % (Auto) Lymph % (Auto) [place] % (Auto) Eos % (Auto) Baso % (Auto) Neut # (Auto) Lymph # (Auto) [place] # (Auto) Eos # (Auto) Baso # (Auto) PT INR APTT Sodium Potassium Chloride Carbon Dioxide BUN Creatinine Estimated GFR BUN/Creatinine Ratio Glucose Calcium Total Bilirubin AST ALT Alkaline Phosphatase Ammonia Total Creatine Kinase 145 Troponin I 0.014 NT-Pro-B Natriuret Pep Total Protein Albumin Globulin Albumin/Globulin Ratio Lipase Procalcitonin 0.91 H Prolactin 26.9 H Urine Color Urine Appearance Urine pH Ur Specific [place] Urine Protein Urine Glucose (UA) Urine Ketones Urine Occult Blood Urine Nitrate Urine Bilirubin Urine Urobilinogen Ur Leukocyte Esterase Urine RBC Urine WBC Ur Squamous Epith Cells Urine Bacteria Ur Culture Indicated? Salicylates < 1.0 U Opiates 300ng/mL cut Ur Oxycodone Screen Urine Methadone Screen Acetaminophen Ur Barbiturates Screen U Tricyclic Antidepress Ur Phencyclidine Scrn Ur Amphetamines Screen U Methamphetamines Scrn Ur MDMA Scrn (Ecstasy) U Benzodiazepines Scrn Urine Cocaine Screen U Marijuana (THC) Screen Ethyl Alcohol Ketones 05/23/19 05/23/19 05/23/19 19:08 19:38 20:32 WBC RBC Hgb Hct MCV MCH MCHC RDW Plt Count Neut % (Auto) Lymph % (Auto) [place] % (Auto) Eos % (Auto) Baso % (Auto) Neut # (Auto) Lymph # (Auto) [place] # (Auto) Eos # (Auto) Baso # (Auto) PT INR APTT Sodium Potassium Chloride Carbon Dioxide BUN Creatinine Estimated GFR BUN/Creatinine Ratio Glucose Calcium Total Bilirubin AST ALT Alkaline Phosphatase Ammonia < 9 L Total Creatine Kinase Troponin I NT-Pro-B Natriuret Pep 22077 H Total Protein Albumin Globulin Albumin/Globulin Ratio Lipase Procalcitonin Prolactin Urine Color Yellow Urine Appearance Clear Urine pH 5.0 Ur Specific [place] 1.015 Urine Protein Negative Urine Glucose (UA) Negative Urine Ketones Negative Urine Occult Blood 3+ H Urine Nitrate Negative Urine Bilirubin Negative Urine Urobilinogen 0.2 Ur Leukocyte Esterase Negative Urine RBC 30-100/hpf H Urine WBC 0-1/hpf Ur Squamous Epith Cells 0-1 /hpf Urine Bacteria None seen Ur Culture Indicated? Cult not indicated Salicylates U Opiates 300ng/mL cut Ur Oxycodone Screen Urine Methadone Screen Acetaminophen Ur Barbiturates Screen U Tricyclic Antidepress Ur Phencyclidine Scrn Ur Amphetamines Screen U Methamphetamines Scrn Ur MDMA Scrn (Ecstasy) U Benzodiazepines Scrn Urine Cocaine Screen U Marijuana (THC) Screen Ethyl Alcohol Ketones 05/23/19 05/23/19 20:32 22:25 WBC RBC Hgb Hct MCV MCH MCHC RDW Plt Count Neut % (Auto) Lymph % (Auto) [place] % (Auto) Eos % (Auto) Baso % (Auto) Neut # (Auto) Lymph # (Auto) [place] # (Auto) Eos # (Auto) Baso # (Auto) PT INR APTT Sodium Potassium Chloride Carbon Dioxide BUN Creatinine Estimated GFR BUN/Creatinine Ratio Glucose Calcium Total Bilirubin AST ALT Alkaline Phosphatase Ammonia Total Creatine Kinase Troponin I < 0.012 NT-Pro-B Natriuret Pep Total Protein Albumin Globulin Albumin/Globulin Ratio Lipase Procalcitonin Prolactin Urine Color Urine Appearance Urine pH Ur Specific [place] Urine Protein Urine Glucose (UA) Urine Ketones Urine Occult Blood Urine Nitrate Urine Bilirubin Urine Urobilinogen Ur Leukocyte Esterase Urine RBC Urine WBC Ur Squamous Epith Cells Urine Bacteria Ur Culture Indicated? Salicylates U Opiates 300ng/mL cut Negative Ur Oxycodone Screen Negative Urine Methadone Screen Negative Acetaminophen Ur Barbiturates Screen Negative U Tricyclic Antidepress Negative Ur Phencyclidine Scrn Negative Ur Amphetamines Screen Negative U Methamphetamines Scrn Negative Ur MDMA Scrn (Ecstasy) Negative U Benzodiazepines Scrn Negative Urine Cocaine Screen Negative U Marijuana (THC) Screen Negative Ethyl Alcohol Ketones Assessment & Plan Assessment & Plan narrative: Ishaan Nolen will be admitted to the inpatient service for further evaluation and management of an acute kidney injury and a acute on chronic CHF exacerbation. 1. Metabolic encephalopathy secondary to acute renal failure, new, present on admission * Creatinine of 4.20, in January was creatinine was 1.0 * Question will that this may be both prerenal and postrenal due to urinary retention * Consult with nephrology is recommended in the morning if no improvement or deterioration of his renal function. * Abnormal finding on chest CT calcification overlying the right lower abdomen, possibly within the * lower third collecting system of the right kidney, measuring up to 15 mm. recommending a renal ultrasound which has been ordered * CMP in the am 2. Hyponatremia, acute, present on admission * Likely secondary to dehydration as a result of poor fluid intake over the past 3 days * Patient will be receiving normal saline at 150 mL/hour after receiving a 1000 mL bolus on top of what he had received in the emergency department * Serum osmolality, urine osmolality and sodium have been ordered and are pending 3. Acute on chronic congestive heart failure with ischemic cardiomyopathy, present on admission * CHADS Vasc2 score is 6 * He has a proBNP of 14,300 * Last echocardiogram indicated an EF of 30% * I have ordered a Doppler echocardiogram for the morning * He takes spironolactone 25 mg po daily which will be held * Patient takes Bumex 1 tablet daily and due to anuria, this will be held * Please refer to HPI for information on his previous echocardiograms. 4. Elevated serum bilirubin, appears to be chronic and present on admission * Serum bilirubin on admission was 4.7 and will repeat in the morning * Bilirubin in January was 3.7 drawn twice. * Of concern is today's noncontrast CT of the abdomen indicated cirrhosis and ascites and a finding of cholelithiasis. Recommended right upper quadrant ultrasound * Abdominal ultrasound has been ordered. 5. Hypotension, acute, present on admission * Patient received boluses in the ED of 30 mL/kilograms of approximately 2.5 L and received another liter on the unit * He will receive normal saline at 150 mL/hour 5. Atrial fibrillation, chronic, present on admission * Patient will be on telemetry overnight * Patient is anticoagulated on apixaban 5 mg p.o. b.i.d. 6. Coronary artery disease, chronic, present on admission * Continue home dose of carvedilol 6.25 mg p.o. b.i.d. * He takes sacabitril-valsartan (Entresto) 97/103 1 tab twice daily which will be held due to current hypotension 7. Probable hyperlipidemia * Patient is not currently on a statin, patient declined in 2017 FEN: Normal saline at 150 mL/hour, regular diet, chemistries in the am Patient is admitted inpatient his stay is likely to exceed 2 midnights. VTE Prophylaxis: He will be maintained on his home dose of apixaban 5 mg p.o. b.i.d. as well as SCDs. Medications reconciled: Patient's home medication list is incomplete but is available from recent past medical records Disposition: Unknown at this time Code Status: Full code Scores CHADS-VASc Congestive heart failure: yes Hypertension: no Age 75 years or older: yes Diabetes mellitus: no Stroke, TIA, or TE: yes Vascular disease: yes Age 65 to 74 years: no Sex category (female): Male CHADS-VASc Score: 6
[2019-05-24 01:11] VITALS: PULSE 69; O2SAT 98
[2019-05-24 01:13] VITALS: BP 90/51; PULSE 75
[2019-05-24 01:26] VITALS: BP 90/51; PULSE 72; RESP 14; O2SAT 98
[2019-05-24] MEDS: SODIUM CHLORIDE 0.9% 1,000 ML 150 ML IV ×3 (01:48→04:33)
[2019-05-24 01:50] VITALS: BP 71/47; PULSE 75; RESP 12; TEMP 36.3; O2SAT 97
[2019-05-24] MEDS: SODIUM CHLORIDE 0.9% 1,000 ML 999 ML IV (02:00)
[2019-05-24 02:03] VITALS: BMI 26.4
[2019-05-24 02:05] VITALS: BP 93/52; PULSE 72; RESP 25; O2SAT 95
[2019-05-24 02:29] VITALS: BP 90/55; PULSE 75; RESP 21; O2SAT 96
[2019-05-24 03:59] LABS: Alanine Aminotransferase 14 IU/L (<50); Albumin 2.7 g/dL (3.5-5.0); Alkaline Phosphatase 67 U/L (38-126); Aspartate Aminotransferase 30 IU/L (17-59); BUN Creatinine Ratio 16.5 (6-22); Blood Urea Nitrogen 61 mg/dL (9-20); Calcium 6.9 mg/dL (8.4-10.2); Carbon Dioxide 17 mmol/L (22-32); Chloride 97 mmol/L (98-107); Globulin 2.7 g/dL (1.7-4.1); Glucose 68 mg/dL (80-110); HEMOLYSIS 42 (0-50); Phosphorous 5.7 mg/dL (2.3-3.7); Potassium 4.9 mmol/L (3.4-5.1); Sodium 128 mmol/L (137-145); Total Protein 5.4 g/dL (6.3-8.2)
[2019-05-24] MEDS: NOREPINEPHRINE 4 MG in DEXTROSE 5% IN WATER 250 ML 15.24 ML IV (04:00)
[2019-05-24 04:07] LABS: NT-proBNP (BNP-Adult 18+) 12400 pg/mL (<450)
--- NOTE | 2019-05-24 04:33 | P.DS_ITS ---
History of Present Illness History of Present Illness Chief complaint: mental status change Narrative: Ishaan Nolen is a 78-year-old male with a significant history including CO, stent placement, and a CVA after having undergone PCI procedure presented to the emergency department after having weakness and confusion earlier in the day. He apparently was seen by EMS who found that he had a blood sugar in the 40s. They gave him food, he seemed to perk up and declined transport to the emergency department. Patient apparently declined again and the family later in the afternoon called EMS requesting that he be brought to the emergency department. The ED reported that he has been hypotensive but with a map in the 60-65 range. He received about 2.5 L bolus and is currently running normal saline at 125 mL/hour. The patient's creatinine was 4.20 on admission with a normal baseline (1.0) in January of 2019. When asked about fluid intake patient states that he stopped urinating about 3 days ago and when he stopped urinating, he stopped drinking any fluids. When in the room the told me that he passed out in the garage and that he has been weak for 3 days. Patient states he had a rare bacterial infection in his spine (Lacacoccus carnae?) and recently completed a course of cardiac rehab therapy approximately 2-3 weeks ago. He states that he does not have an enlarged prostate, he has no history of kidney issues, is not diabetic. He denies shortness of breath, chest pain, abdominal pain, back pain, he does endorse right-sided thigh pain. He sees Dr. Ishaan Rios lead heart failure physician at [facility] heart and vascular clinic. Patient has an extensive cardiac history which included his severe ischemic cardiomyopathy in 2017 with large LAD distribution infarction and mild ischemia in the RCA and the left CX distributions. At that time it involved 75% of the mid distal anterior wall, mid to distal lateral wall, anterior septum and the entire apex. At that time he had a severely enlarged left ventricle with a severely reduced left ventricular function of 22.9%. The right ventricle was of normal size with [id number] reduced right ventricular function of 41%. He has a current diagnosis of atrial fibrillation and this was also seen on that echocardiogram. Patient had an CO in 2006 and in stent restenosis in 2007. At that time his ejection fraction was 45% and during the 2nd PCI procedure he had a stroke. The notes state did that over this past several years he has declined in function and in 2011 his echocardiogram indicated a 33% EF with possible ischemia, the next echo in 2013 indicated an EF of 16%. And then in 2018 his most recent echo, was 30% EF. They recommended a biventricular ICD. The patient has declined such stating to me that he did want to be a ?robot?. Discharge Providers Provider Date of admission: 05/24/19 00:23 Discharge Date: 05/24/19 Primary care physician: Herman Mclaughlin MD Discharge provider: DANIELLE Davis Summary Hospital Course Discharge Diagnosis: 1. Metabolic encephalopathy secondary to acute renal failure, new, present on admission 2. Hyponatremia, acute, present on admission 3. Acute on chronic congestive heart failure with ischemic cardiomyopathy, present on admission 4. Elevated serum bilirubin, appears to be chronic and present on admission 5. Hypotension, acute, present on admission 5. Atrial fibrillation, chronic, present on admission 6. Coronary artery disease, chronic, present on admission 7. Probable hyperlipidemia Hospital Course: Ishaan Nolen was admitted to the inpatient service for further evaluation and management of an acute kidney injury and a acute on chronic CHF exacerbation. At that time he had completed receiving 2.5 liter boluses of normal saline. He was then started on 150 mL/hour normal saline. After approximately an hour of being on the on the medical-surgical floor, he was reported to have had a drop in his blood pressure to 67/46 with a map of 52 and a heart rate of 73. His glucose was in the high 40s. They again gave him juice and his glucose went up to 70. Patient was ordered for a norepinephrine drip which was started at 4 mics per minute and increased to 5 mics per minute. Blood pressure has increased to 90/55. Due to the need to have Nephrology and possibly Cardiology to weigh in on this patient, I discussed the case with Dr. Walker, ICU attending at [facility] and she agreed to accept the patient. Patient will have a central line placed by Dr. Ramirez, ED physician prior to transport. 1. Metabolic encephalopathy secondary to acute renal failure, new, present on admission - Creatinine of 4.20, in January was creatinine was 1.0 -Question will that this may be both prerenal and postrenal due to urinary retention - Consult with nephrology is recommended in the morning if no improvement or deterioration of his renal function. -Abnormal finding on chest CT calcification overlying the right lower abdomen, possibly within the lower third collecting system of the right kidney, measuring up to 15 mm. recommending a renal ultrasound which has been ordered -[facility] in the am 2. Hyponatremia, acute, present on admission - Likely secondary to dehydration as a result of poor fluid intake over the past 3 days - Patient will be receiving normal saline at 150 mL/hour after receiving a 1000 mL bolus on top of what he had received in the emergency department - Serum osmolality, urine osmolality and sodium have been ordered and are pending 3. Acute on chronic congestive heart failure with ischemic cardiomyopathy, present on admission - CHADS Vasc2 score is 6 - He has a proBNP of 14,300 - Last echocardiogram indicated an EF of 30% - I have ordered a Doppler echocardiogram for the morning - He takes spironolactone 25 mg po daily which will be held - Patient takes Bumex 1 tablet daily and due to anuria, this will be held - Please refer to HPI for information on his previous echocardiograms. 4. Elevated serum bilirubin, appears to be chronic and present on admission - Serum bilirubin on admission was 4.7 and will repeat in the morning - Bilirubin in January was 3.7 drawn twice. - Of concern is today's noncontrast CT of the abdomen indicated cirrhosis and ascites and a finding of cholelithiasis. Recommended right upper quadrant ultrasound Abdominal ultrasound has been ordered. 5. Hypotension, acute, present on admission - Patient received boluses in the ED of 30 mL/kilograms of approximately 2.5 L and received another liter on the unit - He will receive normal saline at 150 mL/hour 5. Atrial fibrillation, chronic, present on admission - Patient will be on telemetry overnight - Patient is anticoagulated on apixaban 5 mg p.o. b.i.d. 6. Coronary artery disease, chronic, present on admission - Continue home dose of carvedilol 6.25 mg p.o. b.i.d. - He takes sacabitril-valsartan (Entresto) 97/103 1 tab twice daily which will be held due to current hypotension 7. Probable hyperlipidemia - Patient is not currently on a statin, patient declined in 2017 VTE Prophylaxis: He will be maintained on his home dose of apixaban 5 mg p.o. b.i.d. as well as SCDs. Status at Discharge Cognitive/behavioral status at discharge: oriented Functional status at discharge: bed bound Overall status at discharge: patient is not back to baseline Time Spent with Patient Time spent: Greater than 30 minutes (Critical care time: 35 minutes) Exam Vital Signs (past 8 hours): - 05/23/19 21:00 05/23/19 21:11 05/23/19 22:01 Temperature 97.8 F Pulse Rate 70 72 Respiratory Rate 23 Blood Pressure Blood Pressure [Left Arm] 75/50 L 79/51 L Pulse Oximetry 97 98 05/23/19 22:57 05/23/19 23:48 05/24/19 01:11 Temperature Pulse Rate 71 72 69 Respiratory Rate 13 Blood Pressure Blood Pressure [Left Arm] 75/51 L 72/51 L Pulse Oximetry 99 100 98 05/24/19 01:13 05/24/19 01:26 05/24/19 01:50 Temperature 97.4 F L Pulse Rate 75 72 75 Respiratory Rate 14 12 Blood Pressure 90/51 L 90/51 L 71/47 L Blood Pressure [Left Arm] Pulse Oximetry 98 97 05/24/19 02:05 05/24/19 02:29 Temperature Pulse Rate 72 75 Respiratory Rate 25 H 21 Blood Pressure 93/52 L 90/55 L Blood Pressure [Left Arm] Pulse Oximetry 95 96 Oxygen Delivery Method Room Air Narrative Exam Narrative: Gen: Alert, oriented, ill appearing 78 y.o. male, appears sleepy HEENT: normocephalic, atraumatic, conjunctiva clear, sclera non-icteric, oral mucosa dry Neck: supple, full ROM Resp: Lungs CTA, non-labored breathing CV: RRR, no murmur or rubs : Araujo draining tea-colored urine Abd: soft, non-tender, normoactive BTs Skin: bilateral +2 pitting edema with the right leg appearing to mottled Neuro: Appears to have word finding difficulties, patient is aware of this. Alert and oriented X 4 w/no focal deficits Extremities: moves all 4 extremities, is ambulatory, negative Ulises?s sign Psyche: normal mood and affect Objective Labs Result Diagrams: 05/23/19 19:08 05/24/19 03:40 Labs: Laboratory Results - last 24 hr 05/23/19 05/23/19 05/23/19 19:08 19:08 19:08 WBC 11.8 H RBC 4.38 L Hgb 14.9 Hct 45.2 MCV 103.2 H MCH 34.2 H MCHC 33.1 RDW 14.8 Plt Count 132 L Neut % (Auto) 82.1 H Lymph % (Auto) 5.5 L [place] % (Auto) 11.5 Eos % (Auto) 0.7 L Baso % (Auto) 0.2 Neut # (Auto) 9700 H Lymph # (Auto) 600 L Barn[place] # (Auto) 1400 H Eos # (Auto) 100 Baso # (Auto) 0 PT 23.7 H INR 2.1 H APTT 41 H Sodium 127 L Potassium 5.4 H Chloride 91 L Carbon Dioxide 19 L BUN 65 H Creatinine 4.20 H Estimated GFR 13.8 L BUN/Creatinine Ratio 15.5 Glucose 91 Calcium 7.6 L Phosphorus Total Bilirubin 4.7 H AST 38 ALT 16 Alkaline Phosphatase 64 Ammonia Total Creatine Kinase Troponin I NT-Pro-B Natriuret Pep Total Protein 6.0 L Albumin 3.3 L Globulin 2.7 Albumin/Globulin Ratio 1.2 Lipase 46 Procalcitonin Prolactin Urine Color Urine Appearance Urine pH Ur Specific [place] Urine Protein Urine Glucose (UA) Urine Ketones Urine Occult Blood Urine Nitrate Urine Bilirubin Urine Urobilinogen Ur Leukocyte Esterase Urine RBC Urine WBC Ur Squamous Epith Cells Urine Bacteria Ur Culture Indicated? Nasal Screen MRSA (PCR) Salicylates U Opiates 300ng/mL cut Ur Oxycodone Screen Urine Methadone Screen Acetaminophen < 10 L Ur Barbiturates Screen U Tricyclic Antidepress Ur Phencyclidine Scrn Ur Amphetamines Screen U Methamphetamines Scrn Ur MDMA Scrn (Ecstasy) U Benzodiazepines Scrn Urine Cocaine Screen U Marijuana (THC) Screen Ethyl Alcohol < 10 Ketones 0.50 H 05/23/19 05/23/19 05/23/19 19:08 19:08 19:08 WBC RBC Hgb Hct MCV MCH MCHC RDW Plt Count Neut % (Auto) Lymph % (Auto) [place] % (Auto) Eos % (Auto) Baso % (Auto) Neut # (Auto) Lymph # (Auto) [place] # (Auto) Eos # (Auto) Baso # (Auto) PT INR APTT Sodium Potassium Chloride Carbon Dioxide BUN Creatinine Estimated GFR BUN/Creatinine Ratio Glucose Calcium Phosphorus Total Bilirubin AST ALT Alkaline Phosphatase Ammonia Total Creatine Kinase 145 Troponin I 0.014 NT-Pro-B Natriuret Pep Total Protein Albumin Globulin Albumin/Globulin Ratio Lipase Procalcitonin 0.91 H Prolactin 26.9 H Urine Color Urine Appearance Urine pH Ur Specific [place] Urine Protein Urine Glucose (UA) Urine Ketones Urine Occult Blood Urine Nitrate Urine Bilirubin Urine Urobilinogen Ur Leukocyte Esterase Urine RBC Urine WBC Ur Squamous Epith Cells Urine Bacteria Ur Culture Indicated? Nasal Screen MRSA (PCR) Salicylates < 1.0 U Opiates 300ng/mL cut Ur Oxycodone Screen Urine Methadone Screen Acetaminophen Ur Barbiturates Screen U Tricyclic Antidepress Ur Phencyclidine Scrn Ur Amphetamines Screen U Methamphetamines Scrn Ur MDMA Scrn (Ecstasy) U Benzodiazepines Scrn Urine Cocaine Screen U Marijuana (THC) Screen Ethyl Alcohol Ketones 05/23/19 05/23/19 05/23/19 19:08 19:38 20:32 WBC RBC Hgb Hct MCV MCH MCHC RDW Plt Count Neut % (Auto) Lymph % (Auto) [place] % (Auto) Eos % (Auto) Baso % (Auto) Neut # (Auto) Lymph # (Auto) [place] # (Auto) Eos # (Auto) Baso # (Auto) PT INR APTT Sodium Potassium Chloride Carbon Dioxide BUN Creatinine Estimated GFR BUN/Creatinine Ratio Glucose Calcium Phosphorus Total Bilirubin AST ALT Alkaline Phosphatase Ammonia < 9 L Total Creatine Kinase Troponin I NT-Pro-B Natriuret Pep 93642 H Total Protein Albumin Globulin Albumin/Globulin Ratio Lipase Procalcitonin Prolactin Urine Color Yellow Urine Appearance Clear Urine pH 5.0 Ur Specific [place] 1.015 Urine Protein Negative Urine Glucose (UA) Negative Urine Ketones Negative Urine Occult Blood 3+ H Urine Nitrate Negative Urine Bilirubin Negative Urine Urobilinogen 0.2 Ur Leukocyte Esterase Negative Urine RBC 30-100/hpf H Urine WBC 0-1/hpf Ur Squamous Epith Cells 0-1 /hpf Urine Bacteria None seen Ur Culture Indicated? Cult not indicated Nasal Screen MRSA (PCR) Salicylates U Opiates 300ng/mL cut Ur Oxycodone Screen Urine Methadone Screen Acetaminophen Ur Barbiturates Screen U Tricyclic Antidepress Ur Phencyclidine Scrn Ur Amphetamines Screen U Methamphetamines Scrn Ur MDMA Scrn (Ecstasy) U Benzodiazepines Scrn Urine Cocaine Screen U Marijuana (THC) Screen Ethyl Alcohol Ketones 05/23/19 05/23/19 05/24/19 20:32 22:25 01:45 WBC RBC Hgb Hct MCV MCH MCHC RDW Plt Count Neut % (Auto) Lymph % (Auto) [place] % (Auto) Eos % (Auto) Baso % (Auto) Neut # (Auto) Lymph # (Auto) [place] # (Auto) Eos # (Auto) Baso # (Auto) PT INR APTT Sodium Potassium Chloride Carbon Dioxide BUN Creatinine Estimated GFR BUN/Creatinine Ratio Glucose Calcium Phosphorus Total Bilirubin AST ALT Alkaline Phosphatase Ammonia Total Creatine Kinase Troponin I < 0.012 NT-Pro-B Natriuret Pep Total Protein Albumin Globulin Albumin/Globulin Ratio Lipase Procalcitonin Prolactin Urine Color Urine Appearance Urine pH Ur Specific [place] Urine Protein Urine Glucose (UA) Urine Ketones Urine Occult Blood Urine Nitrate Urine Bilirubin Urine Urobilinogen Ur Leukocyte Esterase Urine RBC Urine WBC Ur Squamous Epith Cells Urine Bacteria Ur Culture Indicated? Nasal Screen MRSA (PCR) Negative for mrsa Salicylates U Opiates 300ng/mL cut Negative Ur Oxycodone Screen Negative Urine Methadone Screen Negative Acetaminophen Ur Barbiturates Screen Negative U Tricyclic Antidepress Negative Ur Phencyclidine Scrn Negative Ur Amphetamines Screen Negative U Methamphetamines Scrn Negative Ur MDMA Scrn (Ecstasy) Negative U Benzodiazepines Scrn Negative Urine Cocaine Screen Negative U Marijuana (THC) Screen Negative Ethyl Alcohol Ketones 05/24/19 03:40 WBC RBC Hgb Hct MCV MCH MCHC RDW Plt Count Neut % (Auto) Lymph % (Auto) [place] % (Auto) Eos % (Auto) Baso % (Auto) Neut # (Auto) Lymph # (Auto) [place] # (Auto) Eos # (Auto) Baso # (Auto) PT INR APTT Sodium 128 L Potassium 4.9 Chloride 97 L Carbon Dioxide 17 L BUN 61 H Creatinine 3.70 H Estimated GFR 16.0 L BUN/Creatinine Ratio 16.5 Glucose 68 L Calcium 6.9 L Phosphorus 5.7 H Total Bilirubin 4.0 H AST 30 ALT 14 Alkaline Phosphatase 67 Ammonia Total Creatine Kinase Troponin I NT-Pro-B Natriuret Pep 22246 H Total Protein 5.4 L Albumin 2.7 L Globulin 2.7 Albumin/Globulin Ratio 1.0 Lipase Procalcitonin Prolactin Urine Color Urine Appearance Urine pH Ur Specific [place] Urine Protein Urine Glucose (UA) Urine Ketones Urine Occult Blood Urine Nitrate Urine Bilirubin Urine Urobilinogen Ur Leukocyte Esterase Urine RBC Urine WBC Ur Squamous Epith Cells Urine Bacteria Ur Culture Indicated? Nasal Screen MRSA (PCR) Salicylates U Opiates 300ng/mL cut Ur Oxycodone Screen Urine Methadone Screen Acetaminophen Ur Barbiturates Screen U Tricyclic Antidepress Ur Phencyclidine Scrn Ur Amphetamines Screen U Methamphetamines Scrn Ur MDMA Scrn (Ecstasy) U Benzodiazepines Scrn Urine Cocaine Screen U Marijuana (THC) Screen Ethyl Alcohol Ketones Discharge Plan Discharge Plan Patient Disposition: [facility] Other facility: [facility] Under care of provider: Dr. Walker Discharge orders & Medications Follow up/Referrals: Herman Mclaughlin MD [Primary Care Provider] - Discharge Health Status Precautions: [place] Diet/Activity/Treatments Diet: Diet as Tolerated, Regular and Low-protein/Renal Liquid consistency: Normal/Thin Food texture: Regular Discharge Data Primary Care Provider: Herman Mclaughlin V Quality VTE Deep Vein Thrombosis/Pulmonary Embolism Present on Admission: No
--- NOTE | 2019-05-24 05:05 | DI.RAD.S_ITS ---
PROCEDURE: XR CHEST 1V INDICATIONS: confirmation of central line placement TECHNIQUE: One view of the chest was acquired. COMPARISON: [facility], CR, XR CHEST 1V, 05/23/2019, 21:12. FINDINGS: Surgical changes and devices: Central venous catheter projects in the distal SVC via a right IJ approach.. Lungs and pleura: Lungs are clear. No pleural effusions or pneumothorax. Mild cephalization of pulmonary vasculature and slight prominence of interstitium suggesting mild CHF. Mediastinum: Mediastinal contours appear normal. Heart is enlarged. Bones and chest wall: No suspicious bony lesions. Overlying soft tissues appear unremarkable. IMPRESSION: Central venous line projects in the distal SVC. Dictated by: Cher Guevara MD, PhD on 05/24/2019 at 8:21 Approved by: Cher Guevara MD, PhD on 05/24/2019 at 8:22
--- NOTE | 2019-05-24 05:20 | ED.CONSULT ---
ED Provider Consult/Code Note General Date Patient Seen: 05/24/19 Time Patient Seen: 05:20 Reason for Admission: mental status change Events leading to Consult/Code: Call to the floor to assisted putting in a central line secondary to a patient who was hypotensive and needed started on vasopressors. Lines Placed Central Line Lumen Inserted: triple Ultrasound Used for Placement: Yes Other Lines: Patient provided consent Patient was prepped and draped in a sterile fashion. Right internal jugular vein identified by bedside ultrasound. Skin was anesthetized using 1% lidocaine Introducer needle was used until appropriate blood return. Location was identified through ultrasound Small kianna in the skin was made with an 11 blade Skin was then dilated Triple-lumen was placed and secured with sutures All ports were flushed and do withdrawal easily Location of tip of catheter was verified with chest x-ray No bio patches were found in the emergency department or the ICU so none was placed Care Provided Description of care provided: Right triple-lumen IJ placement Outcome Outcome: Right triple-lumen IJ successfully placed
--- NOTE | 2019-05-24 06:46 | PC.ADMIT ---
[id number] Admission Note: The patient,Ishaan Nolen,78 y/o, was given written information regarding hospital policies, unit procedures and contact persons. Patient's smoking status: Former smoker. Vital Signs - 8 hr 05/23/19 22:57 05/23/19 23:48 05/24/19 01:11 Temperature Pulse Rate 71 72 69 Respiratory Rate 13 Blood Pressure Blood Pressure [Left Arm] 75/51 L 72/51 L Pulse Oximetry 99 100 98 05/24/19 01:13 05/24/19 01:26 05/24/19 01:50 Temperature 97.4 F L Pulse Rate 75 72 75 Respiratory Rate 14 12 Blood Pressure 90/51 L 90/51 L 71/47 L Blood Pressure [Left Arm] Pulse Oximetry 98 97 05/24/19 02:05 05/24/19 02:29 Temperature Pulse Rate 72 75 Respiratory Rate 25 H 21 Blood Pressure 93/52 L 90/55 L Blood Pressure [Left Arm] Pulse Oximetry 95 96 Patient admitted to Room 227 at 0130. Fatigued and forgetful but oriented x3 and able to participate in admit assessment and care. Hypotension persists throughout out stay in ICU, see vital trends. 1000ml NS boluses given as ordered, Levophed gtt started at 0400, initial rate 4mcg/min, titrated to 7mcg/min when DC'd with paramedics at 0545. CL placed in RIJ prior to leaving. A-fib CVR, BBB rate 60s-80s. Denied chest pain, dyspnea. or dizziness. RA SpO2 >94%. Hematuria in Araujo cath, 250ml UOP while here. CBG 57 at 0200, ate 1/2 sandwich and pudding, CBG 70 at 0300. at bedside. All of patient's belongings went with family. Report called to Latrice ROMAN at [facility] at 0550.
== END 2019-05-24 05:45 | disposition short-term general hospital (02) | DRG 682 ==
LOC: ED 05-24 00:19 → AC 05-24 00:40 → ICU 05-24 04:56 → AC 05-28 12:39 → ICU 05-28 12:39
PROVIDERS: Admitting Provider Nurse Practitioner Family; Emergency Provider Emergency Medicine; PCP Internal Medicine; Referring Provider Emergency Medicine; Visit Provider Nurse Practitioner Family
DX: N17.9 Acute kidney failure, unspecified (principal); G93.41 Metabolic encephalopathy; I50.23 Acute on chronic systolic (congestive) heart failure; E87.1 Hypo-osmolality and hyponatremia; I48.20 Chronic atrial fibrillation, unspecified; I11.0 Hypertensive heart disease with heart failure; I95.9 Hypotension, unspecified; E86.0 Dehydration; I25.5 Ischemic cardiomyopathy; I25.10 Atherosclerotic heart disease of native coronary artery without angina pectoris; E80.6 Other disorders of bilirubin metabolism; E78.5 Hyperlipidemia, unspecified; Z79.01 Long term (current) use of anticoagulants; Z86.73 Personal history of transient ischemic attack (TIA), and cerebral infarction without residual deficits; Z95.818 Presence of other cardiac implants and grafts; M54.5 Low back pain; M47.816 Spondylosis without myelopathy or radiculopathy, lumbar region
CPT/HCPCS: 36415; 51798; 70450; 71045; 71046; 72100; 74176; 80053; 80305; 80320; 80329; 81001; 82009; 82140; 82550; 82962; 83690; 83880; 84100; 84145; 84146; 84484; 85025; 85610; 85730; 87797; 93005; 96360; 96361; 99285; G0480

== ENCOUNTER → 2019-10-29 13:57 | Outpatient (CLI) | payer MEDICARE, SELFPAY ==
--- NOTE | 2019-10-29 | DI.RAD.S_ITS ---
PROCEDURE: XR HAND RT MIN 3V INDICATIONS: CELLULITIS OF RIGHT HAND TECHNIQUE: 3 views of the hand(s) acquired. COMPARISON: None. FINDINGS: Bones: No fractures or dislocations. Carpal bones are normally aligned. No suspicious bony lesions that would suggest presence of definite osteomyelitis. There is prominent degenerative changes involving the distal interphalangeal joints of the 2nd 3rd and 4th digits and at the proximal interphalangeal joint of the 5th digit.. Marginal erosive changes are seen at each of these sites, potentially a manifestation of erosive arthritis. Superimposed infection conceivably could be centered in these areas but arthritic rather than osteomyelitic etiology is considered most likely. At the base of the 1st metacarpal a more conventional appearing osteoarthritic change pattern is present. Soft tissues: No suspicious soft tissue calcifications. IMPRESSION: Erosive changes are seen as discussed involving the distal interphalangeal joints of digits 2 through 4 and of the more proximal periarticular 5th digit. 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 Dictated by: Arsalan Lai M.D. on 10/29/2019 at 15:34 Approved by: Arsalan Lai M.D. on 10/29/2019 at 15:38
[2019-10-29 15:11] LABS: Add Manual Diff / Slide Review NO; Basophils Absolute Auto 100 /uL (0-100); Basophils Percent Auto 0.4 % (0-2); Eosinophils Absolute Auto 200 /uL (0-450); Eosinophils Percent Auto 1.2 % (2-4); Hematocrit 38.8 % (41-53); Hemoglobin 12.9 g/dL (13.5-17.5); Lymphocytes Absolute Auto 1300 /uL (1100-4500); Lymphocytes Percent Auto 9.7 % (25-40); Mean Corpuscular HGB Conc 33.3 % (30-36); Mean Corpuscular Hemoglobin 33.4 PG (26-34); Mean Corpuscular Volume 100.2 fL (80-100); Monocytes Absolute Auto 1000 /uL (0-900); Monocytes Percent Auto 7.9 % (3-14); Neutrophils Absolute Auto 10500 /uL (1500-7000); Neutrophils Percent Auto 80.8 % (50-75); Platelet Count 183 X10^3/uL (150-400); Red Blood Cell Count 3.87 X10^6/uL (4.5-5.9); Red Cell Distribution Width 14.7 % (11.6-14.8); White Blood Cell Count 13.1 X10^3/uL (4.5-11.0)
[2019-10-29 15:34] LABS: Erythrocyte Sedimentation Rate 17 MM/HR (0-15)
[2019-10-29 16:05] LABS: BUN Creatinine Ratio 20.5 (6-22); Blood Urea Nitrogen 18 mg/dL (9-20); C-Reactive Protein Quant 4.5 mg/dL (<1.0); Calcium 9.4 mg/dL (8.4-10.2); Carbon Dioxide 22 mmol/L (22-32); Chloride 102 mmol/L (98-107); Estimated Glomerular Filt Rate > 60.0 mL/min (>60); Glucose 105 mg/dL (80-110); HEMOLYSIS < 15 (0-50); Potassium 4.9 mmol/L (3.4-5.1); Sodium 136 mmol/L (137-145)
== END ==
PROVIDERS: PCP Internal Medicine; Referring Provider Physician Assistant; Visit Provider Physician Assistant
DX: L03.113 Cellulitis of right upper limb (principal); M19.041 Primary osteoarthritis, right hand
CPT/HCPCS: 36415; 73130; 80048; 85025; 85651; 86140